=== PATIENT | male | born 1955 | race Caucasian/White ===

== ENCOUNTER 2017-07-21 08:53 | Day surgery (SDC) | payer OTHER ==
[~2017-07-21] VITALS: Ht 180.3 cm; Wt 93.6 kg
[~2017-07-21 08:53] MED LIST: CYCL10 PO; HYDACE5 PO; RAMI2.5 PO; UNKNOWN B/P MED
[2017-07-21] MEDS ORDERED: METO50ER (10:51)
[2017-07-21] MEDS ORDERED: RAME8 (10:51)
[2017-07-21] MEDS ORDERED: PRAV20 (10:52)
[2017-07-21] MEDS ORDERED: CLON.5 (10:52)
[2017-07-21] MEDS ORDERED: ASPI81CH (10:53)
== END 2017-07-21 12:37 | disposition home or self-care (01) ==
LOC: ORSCSDS 08:53
DX: R10.9 Unspecified abdominal pain (principal); R11.0 Nausea; D12.3 Benign neoplasm of transverse colon; K62.1 Rectal polyp; E78.5 Hyperlipidemia, unspecified; I10 Essential (primary) hypertension; G47.33 Obstructive sleep apnea (adult) (pediatric); Z79.899 Other long term (current) drug therapy; Z79.82 Long term (current) use of aspirin; F17.210 Nicotine dependence, cigarettes, uncomplicated
CPT/HCPCS: 88305; J7120

== ENCOUNTER 2017-10-26 10:02 | Day surgery (SDC) | payer OTHER ==
[~2017-10-26 10:02] MED LIST changes: +ASPI81CH; +CLON.5; +METO50ER; +PRAV20; +RAME8
== END 2017-10-26 22:57 | disposition home or self-care (01) ==
LOC: US 10:02 → ORSCMMR 10:02 → ORD 12:00 → ORSCMMR 22:57
PROVIDERS: Internal Medicine Gastroenterology; Radiology Diagnostic Radiology
PROC: 0FB03ZX Excision of Liver, Percutaneous Approach, Diagnostic (ICD-10-PCS; principal; 2017-10-26 11:00)
DX: K75.81 Nonalcoholic steatohepatitis (NASH) (principal); K74.0 Hepatic fibrosis; J63.4 Siderosis; R74.8 Abnormal levels of other serum enzymes; R79.0 Abnormal level of blood mineral; F17.210 Nicotine dependence, cigarettes, uncomplicated
CPT/HCPCS: 47000; 76942; 83540; 88307; 88313

== ENCOUNTER → 2018-03-03 | Outpatient (CLI) | payer OTHER ==
[2018-03-03 17:55] LABS: Percent Saturation 42.8 % (20.0-50.0)
== END | disposition home or self-care (01) ==
LOC: LAB SHORT 10:00 → LAB 10:00
PROVIDERS: Internal Medicine Hematology & Oncology
DX: R79.0 Abnormal level of blood mineral (principal)
CPT/HCPCS: 83540; 83550

== ENCOUNTER → 2018-03-31 | Outpatient (CLI) | payer OTHER ==
[2018-03-31 17:39] LABS: Percent Saturation 58.5 % (20.0-50.0)
== END | disposition home or self-care (01) ==
LOC: LAB SHORT 10:00 → LAB 10:00
PROVIDERS: Internal Medicine Hematology & Oncology
DX: R79.0 Abnormal level of blood mineral (principal)
CPT/HCPCS: 82728; 83540; 83550

== ENCOUNTER 2018-10-14 13:28 | Inpatient (IN) | payer OTHER ==
[~2018-10-14] VITALS: Ht 177.8 cm; Wt 90.4 kg
[~2018-10-14 13:28] MED LIST changes: +ONDA4ODT MM; +ROSU5 PO; +ZOLP10 PO
[2018-10-14 15:09] LABS: BASOPHILS ABSOLUTE AUTO 0.03 K/mm3 (0.00-0.23); BASOPHILS PERCENT AUTO 0 % (0-2); EOSINOPHILS PERCENT AUTO 0 % (0-6); Hemoglobin 13.7 g/dL (13.5-17.5); IMMATURE GRAN ABSOLUTE AUTO 0.16 K/mm3 (0.00-0.10); IMMATURE GRAN PERCENT AUTO 1 % (0-1); LYMPHOCYTES ABSOLUTE AUTO 0.82 K/mm3 (0.84-5.20); LYMPHOCYTES PERCENT AUTO 6 % (21-46); MONOCYTES ABSOLUTE AUTO 1.93 K/mm3 (0.16-1.47); MONOCYTES PERCENT AUTO 14 % (4-13); Mean Corpuscular HGB 33.4 pg (26.0-34.0); Mean Corpuscular HGB Conc 35.1 g/dL (31.5-36.5); Mean Corpuscular Volume 95 fL (80-100); Mean Platelet Volume 10.2 fL (9.1-12.4); NEUTROPHILS ABSOLUTE AUTO 10.98 K/mm3 (1.96-9.15); NEUTROPHILS PERCENT AUTO 79 % (41-73); Platelet Count 87 K/mm3 (150-400); RDW Coefficient Variation 12.9 % (11.7-14.2); White Blood Cell Count 13.92 K/mm3 (4.00-11.30)
[2018-10-14 15:11] LABS: Alanine Aminotransfer (ALT/SGP 47 U/L (12-78); Albumin, Blood 2.8 g/dL (3.4-5.0); Albumin/Globulin Ratio 0.7 (0.8-1.8); Alk Phos 35 U/L (50-136); Anion Gap 11 mmol/L (6-16); Aspartate Aminotrans (AST/SGOT 90 U/L (12-37); Bilirubin, Total 1.6 mg/dL (0.1-1.0); Blood Urea Nitrogen 18 mg/dL (8-24); Bun/Creatinine Ratio 21.4 (12.0-20.0); CO2, Blood 21 mmol/L (21-32); Calcium, Blood 7.7 mg/dL (8.5-10.1); Chloride, Blood 96 mmol/L (98-108); Creatinine, Blood 0.84 mg/dL (0.60-1.20); Globulin, Blood 4.1 g/dL (2.2-4.0); Glomerular Filtration Rate >60 (60-); Glucose, Blood 184 mg/dL (70-99); Potassium, Blood 3.7 mmol/L (3.5-5.5); Sodium, Blood 128 mmol/L (136-145); Total Protein, Blood 6.9 g/dL (6.4-8.2); Troponin I 0.109 ng/mL (0.000-0.040)
[2018-10-14 15:25] LABS: Source, Urine Voided
[2018-10-14 15:52] LABS: Bilirubin, Urine Neg (Neg); Blood, Urine 5+ (Neg); Glucose Qualitative, Urine 2+ (Neg); Ketones, Urine 1+ (Neg); Leukocyte Esterase, Urine 1+ (Neg); Nitrite, Urine Neg (Neg); Protein, Urine 3+ (Neg); Specific Gravity, Urine 1.025 (1.003-1.022); Urobilinogen, Urine 1+ (Normal)
[2018-10-14 16:16] LABS: Glucose, CSF 7 mg/dL (40-70)
[2018-10-14 16:24] LABS: WBC Count, CSF 840 /mm3 (0-5)
[2018-10-14 16:27] LABS: Automated CSF WBC Count 0.456 K/mm3 (0-5); WBC Count, CSF 456 /mm3 (0-5)
[2018-10-14 16:55] LABS: Appearance, Urine Clear (Clear); Color, Urine Amber (P-Yellow)
[2018-10-14 17:14] LABS: RBC Count, CSF 215 /mm3 (0-0)
[2018-10-14 17:15] LABS: Appearance, CSF Hazy (Clear)
[2018-10-14 17:19] LABS: Cryptococcus Neoformans/Gattii Not Detected (NOT DETECT); Enterovirus Not Detected (NOT DETECT); Escherichia Coli K1 Not Detected (NOT DETECT); Haemophilus Influenza Not Detected (NOT DETECT); Herpes Simplex Virus 1 Not Detected (NOT DETECT); Herpes Simplex Virus 2 Not Detected (NOT DETECT); Human Herpesvirus 6 Not Detected (NOT DETECT); Human Parechovirus Not Detected (NOT DETECT); Neisseria Meningitidis Not Detected (NOT DETECT); Streptococcus Agalactiae Not Detected (NOT DETECT); Streptococcus Pneumoniae Not Detected (NOT DETECT); Varicella Zoster Virus Not Detected (NOT DETECT)
[2018-10-14 17:21] LABS: Listeria Monocytogenes Detected (NOT DETECT)
[2018-10-14 17:28] LABS: Lymphocytes, CSF 8 % (40-80); Monocytes, CSF 41 % (15-45); Neutrophils, CSF 51 % (0-6)
[2018-10-14 17:44] LABS: Appearance, CSF Hazy (Clear); RBC Count, CSF 273 /mm3 (0-0)
[2018-10-14 17:51] LABS: Lymphocytes, CSF 12 % (40-80); Monocytes, CSF 43 % (15-45); Neutrophils, CSF 45 % (0-6)
[2018-10-14 18:00] LABS: Amorphous Light (0-Heavy); Bacteria Many /hpf; Squamous Epithelial Cells Rare /hpf (Few)
[2018-10-14 18:01] LABS: Mucus Mod (0-Heavy)
[2018-10-14 21:36] LABS: PCO2 Arterial 39.2 mmHg (35-45); PO2 Arterial 78.7 mmHg (80-100); pH Blood Arterial 7.32 (7.35-7.45)
[2018-10-14 21:55] LABS: BASOPHILS ABSOLUTE AUTO 0.02 K/mm3 (0.00-0.23); BASOPHILS PERCENT AUTO 0 % (0-2); EOSINOPHILS ABSOLUTE AUTO 0.01 K/mm3 (0.00-0.68); EOSINOPHILS PERCENT AUTO 0 % (0-6); Hematocrit 40.6 % (37.0-53.0); Hemoglobin 14.2 g/dL (13.5-17.5); IMMATURE GRAN ABSOLUTE AUTO 0.31 K/mm3 (0.00-0.10); IMMATURE GRAN PERCENT AUTO 2 % (0-1); LYMPHOCYTES ABSOLUTE AUTO 0.83 K/mm3 (0.84-5.20); LYMPHOCYTES PERCENT AUTO 6 % (21-46); MONOCYTES ABSOLUTE AUTO 1.14 K/mm3 (0.16-1.47); MONOCYTES PERCENT AUTO 8 % (4-13); Mean Corpuscular HGB 33.5 pg (26.0-34.0); Mean Corpuscular Volume 96 fL (80-100); Mean Platelet Volume 9.9 fL (9.1-12.4); NEUTROPHILS ABSOLUTE AUTO 12.78 K/mm3 (1.96-9.15); NEUTROPHILS PERCENT AUTO 85 % (41-73); Platelet Count 104 K/mm3 (150-400); RDW Coefficient Variation 12.9 % (11.7-14.2); RDW Standard Deviation 45.4 fL (35.1-46.3); Red Blood Cell Count 4.24 M/mm3 (4.30-5.90); White Blood Cell Count 15.09 K/mm3 (4.00-11.30)
[2018-10-14 22:09] LABS: International Normalized Ratio 1.19; Prothrombin Time Results 12.4 Sec (9.7-11.5)
[2018-10-14 22:21] LABS: Anion Gap 9 mmol/L (6-16); Blood Urea Nitrogen 16 mg/dL (8-24); Bun/Creatinine Ratio 19.9 (12.0-20.0); CO2, Blood 22 mmol/L (21-32); Calcium, Blood 7.1 mg/dL (8.5-10.1); Chloride, Blood 101 mmol/L (98-108); Creatinine, Blood 0.81 mg/dL (0.60-1.20); Glomerular Filtration Rate >60 (60-); Glucose, Blood 174 mg/dL (70-99); Magnesium, Blood 2.1 mg/dL (1.6-2.4); Potassium, Blood 3.7 mmol/L (3.5-5.5); Sodium, Blood 132 mmol/L (136-145)
[2018-10-14 23:45] LABS: Source, Urine Catheter
[2018-10-14 23:51] LABS: Bilirubin, Urine Neg (Neg); Blood, Urine 5+ (Neg); Glucose Qualitative, Urine 1+ (Neg); Ketones, Urine Neg (Neg); Leukocyte Esterase, Urine Neg (Neg); Nitrite, Urine Neg (Neg); Protein, Urine 3+ (Neg); Specific Gravity, Urine 1.015 (1.003-1.022); Urobilinogen, Urine 1+ (Normal)
[2018-10-15 00:05] LABS: Appearance, Urine Hazy (Clear); Color, Urine Amber (P-Yellow)
[2018-10-15 00:06] LABS: Amorphous Light (0-Heavy); Bacteria Not Seen /hpf; Mucus Light (0-Heavy); Red Blood Cells, Urine TNTC /hpf (0-2); Squamous Epithelial Cells Not Seen /hpf (Few); White Blood Cells, Urine Not Seen /hpf (0-5)
--- NOTE | 2018-10-15 02:18 | NUR ---
ASSUMED CARE OF PT AT 1915, REPORT RECEIVED FROM JULIO CESAR FINLEY RN. PT TACHYPNEIC, GRUNTING, AND ATTEMPTING TO ROLL FROM SIDE TO SIDE. PT'S FAMILY AT BEDSIDE AND STATE PT HAS BEEN "LIKE THIS SINCE LAST NIGHT". PT IS NOT RESPONSIVE VERBALLY. DURING ADMISSION ASSESSMENT PT'S SATS BEGAN DROPPING, PLACED PT ON 4L VIA NC WITH LITTLE IMPROVEMENT, SWITCHED TO NONREBREATHER. PLACED TEMP ROY AND NOTED EXCESSIVE AMOUNT OF BLOOD IN TUBE. CONTACTED CHARGE NURSE. BLADDER SCAN COMPLETED. CATHETER REMOVED. PT CONTINUED TO BLEED EXCESSIVELY. 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 PRESSURE AND ICE APPLIED TO BLEED. PT CONTINUES TO BE TACHYPNEIC AND WAS PLACED ON BIPAP. COUDE CATHETER SUCCESSFULLY INSERTED, LIGHT URINE OUTPUT WITH SMALL CLOTS NOTED. PER ANTHONY BURGESS HOLD FLUIDS OVERNIGHT. VSS STABLE AT THIS TIME. PT RESTING WITH PERIODS OF MOANING. REPORT GIVEN TO SAGE CRUZ.
--- NOTE | 2018-10-15 03:05 | NUR ---
ASSUMED CARE REPORT RECIEVED. PT IN BED FIDGETING AND RESTLESS AT THIS TIME. BIPAP ON 03/07, FIO2 55%. VITAL SIGNS STABLE AT THIS TIME. PT WITH SBW RESTRAINTS ON. PT MOANS OUT, NOT FOLLOWING COMMANDS. IV'S SALINE LOCKED. ROY IN PLACE WITH PINK TINGED URINE OUTPUT NOTED. RASH TO RIGHT HIP AREA NOTED. SCATTERED BRUISING TO EXTREMITIES NOTED. WILL CONTINUE TO MONITOR.
[2018-10-15 03:33] LABS: BASOPHILS ABSOLUTE AUTO 0.02 K/mm3 (0.00-0.23); BASOPHILS PERCENT AUTO 0 % (0-2); EOSINOPHILS PERCENT AUTO 0 % (0-6); Hematocrit 37.6 % (37.0-53.0); Hemoglobin 13.4 g/dL (13.5-17.5); IMMATURE GRAN ABSOLUTE AUTO 0.11 K/mm3 (0.00-0.10); IMMATURE GRAN PERCENT AUTO 1 % (0-1); LYMPHOCYTES ABSOLUTE AUTO 0.66 K/mm3 (0.84-5.20); LYMPHOCYTES PERCENT AUTO 6 % (21-46); MONOCYTES PERCENT AUTO 9 % (4-13); Mean Corpuscular HGB 34.6 pg (26.0-34.0); Mean Corpuscular HGB Conc 35.6 g/dL (31.5-36.5); Mean Corpuscular Volume 97 fL (80-100); Mean Platelet Volume 9.9 fL (9.1-12.4); NEUTROPHILS ABSOLUTE AUTO 9.27 K/mm3 (1.96-9.15); NEUTROPHILS PERCENT AUTO 84 % (41-73); Platelet Count 78 K/mm3 (150-400); RDW Standard Deviation 46.1 fL (35.1-46.3); Red Blood Cell Count 3.87 M/mm3 (4.30-5.90); White Blood Cell Count 11.06 K/mm3 (4.00-11.30)
[2018-10-15 03:49] LABS: International Normalized Ratio 1.17; Prothrombin Time Results 12.2 Sec (9.7-11.5)
[2018-10-15 03:50] LABS: Alanine Aminotransfer (ALT/SGP 58 U/L (12-78); Albumin, Blood 2.5 g/dL (3.4-5.0); Albumin/Globulin Ratio 0.6 (0.8-1.8); Alk Phos 32 U/L (50-136); Anion Gap 11 mmol/L (6-16); Aspartate Aminotrans (AST/SGOT 114 U/L (12-37); Bilirubin, Total 1.3 mg/dL (0.1-1.0); Blood Urea Nitrogen 17 mg/dL (8-24); Bun/Creatinine Ratio 19.5 (12.0-20.0); CO2, Blood 23 mmol/L (21-32); Calcium, Blood 6.9 mg/dL (8.5-10.1); Chloride, Blood 99 mmol/L (98-108); Creatinine, Blood 0.87 mg/dL (0.60-1.20); Globulin, Blood 3.9 g/dL (2.2-4.0); Glomerular Filtration Rate >60 (60-); Glucose, Blood 144 mg/dL (70-99); Potassium, Blood 2.9 mmol/L (3.5-5.5); Sodium, Blood 133 mmol/L (136-145); Total Protein, Blood 6.4 g/dL (6.4-8.2)
--- NOTE | 2018-10-15 06:00 | NUR ---
SHIFT SUMMARY NO ACUTE CHANGES SINCE ASSUMPTION OF CARE. PT REMAINS RESTLESS/AGITATED. PT REMAINS CONFUSED. FAMILY AT BEDSIDE. VITAL SIGNS STABLE. BIPAP REMAINS IN PLACE. SBW RESTRAINTS REMAIN IN PLACE. ROY IN PLACE WITH PINK TINGED URINE OUTPUT. ABX INFUSING THROUGH PERIPHERAL IV'S. WILL CONTINUE TO MONITOR AND REPORT OFF TO ONCOMING RN.
--- NOTE | 2018-10-15 07:59 | NUR ---
ASSUMED CARE: REPORT RECEIVED FROM SAGE CRUZ. PT IN BED, VERY RESTLESS, TOSSING AND TURNING FREQUENTLY. PT OPENS HIS EYES TO VOICE AND WILL ATTEMPT TO ANSWER ONE QUESTION BEFORE CLOSING HIS EYES AND NEEDING TO BE WOKEN UP AGAIN BEFORE TRYING TO ASK SOMETHING ELSE. HALDOL GIVEN FOR THE RESTLESSNESS. TYLENOL SUPPOSITORY GIVEN FOR PT'S FEVER. PT'S GRANDDAUGHTER SUMMER AT THE BEDSIDE AND WAS GIVEN PT'S RING THAT WAS REMOVED FROM HIS HAND DUE TO SWELLING.
--- NOTE | 2018-10-15 13:14 | NUR ---
REASSESSMENT: PT'S NEUROLOGIC STATUS IS STILL IMPAIRED. HE IS ABLE TO STATE HE HAS PAIN IN HIS BACK AND WANTS SOMETHING TO EAT, BUT COMMUNICATES LITTLE ELSE. HE STILL TOSSES BACK AND FORTH FROM SIDE TO SIDE. HE FOLLOWS COMMANDS INITIALLY WHEN ASKED, BUT QUICKLY STOPS AND CONTINUES HIS RESTLESS BEHAVIOR. WHEN HE COMPLAINED OF BACK PAIN DR. MONROE WAS NOTIFIED BECAUSE THIS RN DIDN'T SEE ANY PAIN MEDICATION ON THE SEP. DR. MONROE GAVE ORDERS FOR DILAUDID, BUT THEN THIS RN NOTICED THAT FENTNAYL WAS ON THE MAR SO THAT WAS GIVEN INSTEAD. LUNGS REMAIN CLEAR BUT DIM. HE IS ABLE TO MAINTAIN SPO2 GREATER THAN 90% ON 2L/NC, BUT HE WAS OBSTRUCTING EVEN LAYING ON HIS SIDE. FAMILY STATES HE USES A CPAP AT NIGHT. SR, BP ELEVATED THIS AFTERNOON, LABETALOL GIVEN. ROY STILL DRAINING YELLOW URINE. FAMILY HAS BEEN AT THE BEDSIDE THROUGHOUT THE MORNING AND HAS BEEN UPDATED BY DR. ROBERTSON, DR. MONROE AND NURSING STAFF.
--- NOTE | 2018-10-15 16:52 | NUR ---
SHIFT SUMMARY: PT HAS BEEN SLEEPING FOR MOST OF THE AFTERNOON, BUT WOKE UP MORE THIS EVENING AND ASKED TO SIT ON THE EDGE OF THE BED. PT IS WEAK AND REQUIRED A LOT OF ASSISTANCE, BUT HE WAS ABLE TO DANGLE FOR ABOUT 5 MINUTES BEFORE WANTING TO LAY BACK DOWN. HE REQUIRED SOME SUPPORT TO MAINTAIN HIS BALANCE WHILE SITTING. PT ASKED IF HE WAS AT [facility], REORIENTATION PROVIDED, THEN WHEN PT WAS ASKED WHERE HE IS A COUPLE MINUTES LATER PT STILL ANSWERED [facility]. HE WAS ABLE TO TAKE A COUPLE SIPS OF WATER, BUT THEN WAS FALLING BACK ASLEEP SO NO MORE PO INTAKE GIVEN. LUNGS REMAIN CLEAR, DIM IN THE BASES. LABETALOL AND HYDRALAZINE BEING GIVEN FOR HTN. ROY DRAINING. PT CONTINUES TO HAVE FEVERS, CONTROLLED WITH TYLENOL, BUT PT SHIVERS WHEN HIS TEMPERATURE IS RISING. FAMILY REMAINS AT THE BEDSIDE AND HAS BEEN UPDATED THROUGHOUT THE SHIFT. REQUEST MADE FOR THEM TO BRING IN PT'S HOME CPAP.
[2018-10-15 16:54] LABS: Anion Gap 9 mmol/L (6-16); Blood Urea Nitrogen 19 mg/dL (8-24); Bun/Creatinine Ratio 29.5 (12.0-20.0); CO2, Blood 22 mmol/L (21-32); Calcium, Blood 8.5 mg/dL (8.5-10.1); Chloride, Blood 103 mmol/L (98-108); Creatinine, Blood 0.64 mg/dL (0.60-1.20); Glomerular Filtration Rate >60 (60-); Glucose, Blood 130 mg/dL (70-99); Magnesium, Blood 2.2 mg/dL (1.6-2.4); Phosphorus, Blood 2.4 mg/dL (2.5-4.9); Potassium, Blood 3.7 mmol/L (3.5-5.5); Sodium, Blood 134 mmol/L (136-145)
--- NOTE | 2018-10-15 19:41 | NUR ---
ASSUMED CARE OF PT REPORT RECEIVED FROM SAGE GILBERT. PT RESTING COMFORTABLY IN BED. FAMILY AT BEDSIDE. PT ON BIPAP, 03/09 25%. SEE FULL SHIFT ASSESSMENT.
--- NOTE | 2018-10-16 03:56 | NUR ---
PT AWAKE AND ORIENTED TO SELF/PLACE AND SITUATION. PT ABLE TO RECALL THAT HE WAS SICK AND AT [facility]. PT REPORTS THAT HIS NECK "FEELS STIFF" AND THAT HIS "HEAD HURTS". 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 PT STATES THAT THE LAST THING HE ATE PRIOR TO FEELING ILL WAS "[place] [employer] [place] SPROUTS". PT TOLERATED SMALL SIPS OF WATER.
[2018-10-16 05:20] LABS: BASOPHILS ABSOLUTE AUTO 0.04 K/mm3 (0.00-0.23); BASOPHILS PERCENT AUTO 0 % (0-2); EOSINOPHILS PERCENT AUTO 0 % (0-6); Hematocrit 39.7 % (37.0-53.0); Hemoglobin 14.1 g/dL (13.5-17.5); IMMATURE GRAN PERCENT AUTO 1 % (0-1); LYMPHOCYTES ABSOLUTE AUTO 0.57 K/mm3 (0.84-5.20); LYMPHOCYTES PERCENT AUTO 4 % (21-46); MONOCYTES ABSOLUTE AUTO 1.21 K/mm3 (0.16-1.47); MONOCYTES PERCENT AUTO 9 % (4-13); Mean Corpuscular HGB 34.5 pg (26.0-34.0); Mean Corpuscular HGB Conc 35.5 g/dL (31.5-36.5); Mean Corpuscular Volume 97 fL (80-100); Mean Platelet Volume 10.2 fL (9.1-12.4); NEUTROPHILS ABSOLUTE AUTO 11.73 K/mm3 (1.96-9.15); NEUTROPHILS PERCENT AUTO 86 % (41-73); Platelet Count 109 K/mm3 (150-400); RDW Coefficient Variation 12.9 % (11.7-14.2); RDW Standard Deviation 46.5 fL (35.1-46.3); Red Blood Cell Count 4.09 M/mm3 (4.30-5.90); White Blood Cell Count 13.65 K/mm3 (4.00-11.30)
--- NOTE | 2018-10-16 05:52 | NUR ---
SHIFT SUMMARY PT ALERT AND ORIENTED TO SELF/PLACE/SITUATION. PT REQUESTING TO SIT UP IN BED AND WATCH TELEVISION. PT REPORTS DOUBLE VISION BUT DENIES HEADACHE AT THIS TIME. PT REPORTS THAT HIS NECK IS STILL STIFF. PT HAS TOLERATED SIPS OF WATER WITH STRAW AND WAS ABLE TO SWALLOW TYLENOL WITH NO ISSUE. PT IS REQUESTING JUICE AND SOMETHING TO EAT. PT OFF BIPAP SINCE 0400, PT MAINTAINED SATS OF 90-92% ON ROOM AIR AND WAS PLACED ON 2L NC AT 0500 WITH SATS CURRENTLY IN THE MID 90'S. LUNGS CLEAR, PT HAS OCCASIONAL WEAK, DRY COUGH. 2100 URINARY OUTPUT. SEE PREVIOUS SHIFT NOTES. WILL REPORT TO DAYSHIFT NURSE.
[2018-10-16 05:59] LABS: Alanine Aminotransfer (ALT/SGP 74 U/L (12-78); Albumin, Blood 2.4 g/dL (3.4-5.0); Albumin/Globulin Ratio 0.6 (0.8-1.8); Alk Phos 34 U/L (50-136); Anion Gap 7 mmol/L (6-16); Aspartate Aminotrans (AST/SGOT 132 U/L (12-37); Bilirubin, Total 1.1 mg/dL (0.1-1.0); Blood Urea Nitrogen 23 mg/dL (8-24); Bun/Creatinine Ratio 36.9 (12.0-20.0); CO2, Blood 25 mmol/L (21-32); Calcium, Blood 7.8 mg/dL (8.5-10.1); Chloride, Blood 102 mmol/L (98-108); Creatinine, Blood 0.62 mg/dL (0.60-1.20); Globulin, Blood 4.3 g/dL (2.2-4.0); Glomerular Filtration Rate >60 (60-); Glucose, Blood 142 mg/dL (70-99); Magnesium, Blood 2.5 mg/dL (1.6-2.4); Phosphorus, Blood 2.5 mg/dL (2.5-4.9); Potassium, Blood 3.3 mmol/L (3.5-5.5); Sodium, Blood 134 mmol/L (136-145); Total Protein, Blood 6.7 g/dL (6.4-8.2); Vancomycin, Trough 14.6 ug/mL (5.0-10.0)
--- NOTE | 2018-10-16 11:52 | NUR ---
REASSESSMENT: PT HAS BEEN AWAKE FOR MOST OF THE MORNING. HE IS CONVERSING APPROPRIATELY BUT STILL GETS CONFUSED WHEN ASKED SPECIFIC QUESTIONS LIKE WHERE HE IS AND HE WAS ALSO INSISTENT THAT HE HAD BEEN UP TO THE BATHROOM THIS MORNING EVEN THOUGH HE HADN'T. HE STILL HAS SOME BACK/NECK PAIN BUT IS ABLE TO TURN HIS HEAD TODAY. HE WAS VERY UNCOMFORTABLE IN THE BED SO EGG CRATE MATTRESS PUT ON TOP OF HIS BED AND PT STATES IT FEELS BETTER. LUNGS ARE CLEAR, ON RA. BP CONTINUES TO BE HIGH, APRESOLINE GIVEN WITH GOOD EFFECT. DOCUSATE GIVEN TO HELP PT WITH BM PER DR. MONROE. DR. MONROE GAVE OK FOR PT TO BE PCU. PT'S AT BEDSIDE AND WAS UPDATED BY DR. MONROE AND NURSING STAFF.
--- NOTE | 2018-10-16 16:43 | NUR ---
SHIFT SUMMARY: PT WAS MORE AWAKE TODAY, BUT IS STILL A LITTLE DELAYED IN RESPONSDING AND HAVING DIFFICULTY WITH ANYTHING THAT HE HAS TO REALLY THINK ABOUT. HE CONTINUES TO SEE DOUBLE AND HAS COMMENTED ON SEEING BLACK SPOTS FLOATING IN THE ROOM. SR, AND BP HAS BEEN MORE STABLE WITH SBP IN THE 140S THIS AFTERNOON. LUNGS ARE A LITTLE COARSE, WORSE ON THE L SIDE BUT PT REMAINS ON RA WITH SPO2 ABOVE 90%. ROY DRAINING YELLOW URINE. PT WORKED WITH PHYSICAL THERAPY THIS AFTERNOON. FAMILY HAS BEEN UPDATED THROUGHOUT THE DAY. CONTINUING TO MONITOR.
--- NOTE | 2018-10-16 22:12 | NUR ---
ASSUMED CARE OF PT. REPORT RECEIVED FROM SAGE GILBERT. PT SITTING UP IN BED, ALERT AND ORIENTED. PT REPORTS THAT HE STILL HAS "DOUBLE VISION" AND IS "SEEING THINGS THAT NO ONE ELSE CAN SEE". PT DENIES PAIN AT THIS TIME. PT'S AT BEDSIDE. SEE FULL SHIFT ASSESSMENT.
--- NOTE | 2018-10-17 05:56 | NUR ---
SHIFT SUMMARY ALERT AND ORIENTED. PT ABLE TO APPROPRIATELY ANSWER QUESTIONS AND ABLE TO VERBALLY EXPRESS NEEDS WHEN ASKED. PT IS STILL EXPERIENCING DOUBLE VISION ESPECIALLY AT DISTANCES FARTHER THAN THE END OF THE BED WELL VISUAL HALLUCINATIONS, SPECIFICALLY BLACK SPOTS AND VARIOUS "THINGS ON THE CEILING". PT MEDICATED WITH 2 DOSES OF LACTULOSE IN LAST 24 HOURS. PT WAS INCONTINENT AND HAD LARGE AND VERY LIQUID BOWEL MOVEMENT THIS MORNING. 700 ML CLEAR YELLOW URINARY OUTPUT. ROY IS PATENT WITH MINIMAL AMOUNT OF DRIED BLOOD AROUND MEATUS. PT HYPERTENSIVE THROUGHOUT THE NIGHT AND WAS MEDICATED ACCORDINGLY WITH MINIMAL IMPROVEMENT. PT ON HOME CPAP CURRENTLY AND THROUGHOUT THE NIGHT. WILL REPORT TO DAYSHIFT NURSE.
--- NOTE | 2018-10-17 07:20 | NUR ---
RECEIVED REPORT FROM SAGE RODRIGUEZ, AND ASSUMED CARE OF PT.
--- NOTE | 2018-10-17 09:30 | NUR ---
NURSING SUMMARY NO VERBAL COMMUNICTION, GRUNTS AT TIMES, CLENCHING TEETH, WILL NOT OPEN MOUTH OR FOLLOWING COMMANDS. FLAT AFFECT. SR ON MONITOR, HR 70'S, HYPERTENSIVE, WILL MEDICATE WITH PRN IV ANTI-HYPERTENSIVES. LUNGS COARSE ON LEFT LUNG HARRY, CLEAR ON RIGHT LUNG HARRY, DIMINISHED AT BASES. WAS ON CPAP EARLY THIS SHIFT, REMOVED AND PLACED ON ROOM AIR, SATS >92%. ROY DRAINING DARK YELLOW URINE, SCANT AMOUNT OF BLEEDING FROM TIP OF PENIS. PUREE DIET, TALKING TO SPEECH THERAPY FOR POSSIBLE NPO DUE TO CLENCHING TEETH AND NOT OPENING MOUTH. IVF INFUSING, ANTIBIOTICS, FOLIC ACID AND THIAMINE IV. POSITIVE BOWEL TONES IN ALL QUADRANTS, LARGE WATERY BM, HELD LACTULOSE. BRUISING THROUGHOUT BODY FROM FALLS AT HOME PRIOR TO ADMISSION. WEARING ATTENDS.
--- NOTE | 2018-10-17 11:00 | NUR ---
DR. GOTTI AT BEDSIDE FOR EVALUATION.
--- NOTE | 2018-10-17 13:10 | NUR ---
Per admit trigger, I attempted to meet with Mr. Mills to discuss an Advanced Directive. He was sleeping soundly when I entered. I met with his at bedside. She is quite tearful and worried. She responded well to affirmation of care and gentle certified personal finance counselor. Once rapport was established, I explained an Advanced Directive purpose and benefits. She tells me "they" have been meaning to have this discussion for "a long time" but have been putting it off. Apparently, there is some tension bewtween adult children. Explained that having Rolando's wishes in writing would provide stability at a critical time. She took information and will discuss with pt "when he is stronger." I will remain available.
--- NOTE | 2018-10-17 17:00 | NUR ---
DR. GOTTI AT BEDSIDE FOR EVALUATION.
--- NOTE | 2018-10-17 18:17 | NUR ---
DR. AVILES AT BEDSIDE FOR EVALUATION. NEW ORDERS PROVIDED.
--- NOTE | 2018-10-17 18:49 | NUR ---
NURSING SUMMARY PT REMAINS WITH TEETH CLENCHED, NOT FOLLOWING COMMANDS, SEEMS TO MAKE EYE CONTACT AND RECOGNIZE DAUGHTERS. DOES NOT APPEAR TO BE EXPERIENCING PAIN. DR. AVILES ORDERED CXR THAT HAS BEEN COMPLETED. ABG BEING DRAWN BY RESPIRATORY THERAPY NOW. PT NEEDS TO HAVE A CT HEAD.
[2018-10-17 19:00] LABS: PCO2 Arterial 35.2 mmHg (35-45); PO2 Arterial 101 mmHg (80-100); pH Blood Arterial 7.49 (7.35-7.45)
--- NOTE | 2018-10-18 00:25 | NUR ---
ASSUMING CARE RECEIVED PT REPORT FROM SAGE MENDEZ. PT IS CHANGED TO ICU STATUS AT THE TIME OF SHIFT REPORT. PT HAS LYSTERIA MENINGITIS AT THIS TIME. PT IS NON-VERBAL AND IS VERY RIGID. PT IS CLENCHING TEETH AND IS UNABLE TO FOLLOW COMMANDS TO OPEN MOUTH AT THIS TIME. PT IS UNABLE TO FOLLOW ANY COMMANDS. PT GAZE IS STRAIGHT FORWARD AND PT DOES NOT APPEAR TO BE TRACKING MOTION OR FOCUSING WITH EYES. PT HAS MADE SOME SMALL MOTIONS OF HANDS WHEN ASKED TO SQUEEZE BUT IS INCONSISTANT AT THIS TIME. PT IS ON ROOM AIR AT THIS TIME WITH SPO2 IN THE HIGH 90'S. PT IS HYPERTENSIVE IN THE 160-180'S SYSTOLIC. WILL PROVIDED PRN ANTIHYPERTENSIVES NEEDED. PT HR IS MAINTAINING IN THE 80'S AT THIS TIME. PT APPEARS TO BE SINUS. PT HAS A ROY CATH IN PLACE CURRENTLY PATENT AND DRAINING TO GRAVITY AT THIS TIME. PT IS RECEIVING ABX AND LR AT 50ML/HR. PT IS RIGID AND STIFF, AND IS CLENCHING TEETH A THIS TIME. PT TRANSPORTED TO CT BY SAGE KRISHNAMURTHY. PT RETURNED TO ICU AT APPROX 2100. CT RESULTS RECEIVED FROM [facility] AND REVIEWED BY DR AVILES. UPON REVEIWING CT RESULTS IT WAS DECIDED TO INITIATE TRANSFER PROCESS TO TRANSFER PT TO [facility]. PER SRINATH REPORT ACCEPTING DOCTOR RECEIVED. CURRENTLY AWAITING BED PLACEMENT AT THIS TIME. ASSUMING CARE OF PT AT THE TIME OF SHIFT REPORT. WILL REPORT OFF TO ACCEPTING NURSE WHEN BED PLACEMENT RECEIVED.
[2018-10-18 02:31] LABS: PCO2 Arterial 35.1 mmHg (35-45); PO2 Arterial 90.6 mmHg (80-100); pH Blood Arterial 7.49 (7.35-7.45)
--- NOTE | 2018-10-18 02:48 | NUR ---
PT REPORT. PT ROOM RECEIVED, PT TO BE TRANSFERED TO ROOM 4212 IN SURGICAL ICU AT [facility]. REPORT CALLED TO SAGE ALMANZA AT ACCEPTING FACILITY. ALL QUESTIONS ANSWERED. WILL TRANSFER PT WHEN TRANSPORT ARRIVES.
--- NOTE | 2018-10-18 03:46 | NUR ---
PT TRANSPORT. PT TRANSPORTED AT THIS TIME. PT LEFT UNIT AT APPROX 0345. ALL PT BELONGINGS TAKEN BY PT FAMILY.
== END 2018-10-18 03:45 | disposition short-term general hospital (02) | DRG 871 ==
LOC: ER 13:28 → ICUW 16:56
PROVIDERS: Emergency Medicine; Internal Medicine Critical Care Medicine; Nurse Practitioner Acute Care; Physician Assistant; ADMIT Internal Medicine
PROC: 5A09357 Assistance with Respiratory Ventilation, Less than 24 Consecutive Hours, Continuous Positive Airway Pressure (ICD-10-PCS; principal; 2018-10-14)
DX: A32.7 Listerial sepsis (principal); J96.01 Acute respiratory failure with hypoxia; I50.31 Acute diastolic (congestive) heart failure; G04.90 Encephalitis and encephalomyelitis, unspecified; I24.8 Other forms of acute ischemic heart disease; A32.11 Listerial meningitis; E87.1 Hypo-osmolality and hyponatremia; E87.3 Alkalosis; G91.9 Hydrocephalus, unspecified; R65.20 Severe sepsis without septic shock; E78.00 Pure hypercholesterolemia, unspecified; G47.33 Obstructive sleep apnea (adult) (pediatric); E78.5 Hyperlipidemia, unspecified; F32.9 Major depressive disorder, single episode, unspecified; I25.10 Atherosclerotic heart disease of native coronary artery without angina pectoris; K70.30 Alcoholic cirrhosis of liver without ascites; D69.6 Thrombocytopenia, unspecified; R73.9 Hyperglycemia, unspecified; F41.9 Anxiety disorder, unspecified; R45.1 Restlessness and agitation; I11.0 Hypertensive heart disease with heart failure
CPT/HCPCS: 36415; 36600; 51700; 51701; 51703; 62270; 70450; 71045; 80048; 80053; 80202; 81001; 82330; 82803; 82945; 83605; 83735; 83880; 84100; 84157; 84484; 85025; 85610; 85730; 86703; 87040; 87086; 87483; 89051; 93005; 93010; 93306; 94640; 94660; 96361-59; 96365-59; 96367-59; 96375-59; 97110; 97162; 97530; 99285-25; C9113; J0290; J0360; J0696; J1100; J1170; J1580; J1630; J1940; J2060; J2250; J3010; J3370; J3411; J3480; J7030; J7050; J7120